=== PATIENT | female | born 1965 | race Caucasian/White ===

== ENCOUNTER → 2023-09-28 11:25 | Outpatient (BNVA) | payer MEDICARE, MEDICAID, SELFPAY | PROVIDERS: Family Provider Nurse Practitioner Family; PCP Nurse Practitioner Family; Visit Provider Specialist | DX: R41.89 Other symptoms and signs involving cognitive functions and awareness (principal); R26.9 Unspecified abnormalities of gait and mobility; F07.81 Postconcussional syndrome | CPT/HCPCS: 99205 ==

== ENCOUNTER → 2023-10-10 10:42 | Outpatient (BNVA) | payer MEDICARE, OTHER, MEDICAID, SELFPAY | PROVIDERS: Family Provider Nurse Practitioner Family; PCP Nurse Practitioner Family; Visit Provider Specialist | DX: R26.9 Unspecified abnormalities of gait and mobility (principal); F07.81 Postconcussional syndrome; R41.89 Other symptoms and signs involving cognitive functions and awareness | CPT/HCPCS: 95816 ==

== ENCOUNTER 2023-10-31 11:58 | Outpatient (CLI) | payer OTHER, SELFPAY ==
--- NOTE | 2023-10-31 13:00 | MR_ITS ---
WS: [id number] MRI BRAIN WITHOUT CONTRAST HISTORY: R41.89 - Other symptoms and signs involving cognitive fun... COMPARISON: 12/10/2018 TECHNIQUE: Diffusion imaging, multiplanar T1, T2 and FLAIR imaging obtained. No evidence for acute infarct or hemorrhage. [place]-white matter differentiation is normal. Mild volume loss and atrophy, similar to the prior examination without progression. Temporal lobes ar e symmetric. No hippocampal atrophy. Ventricles and extra-axial spaces are normal. No inferior displacement of cerebellar tonsils. The sella turcica and pituitary gland are unremarkabl e. Dural venous sinuses and lower [place] demonstrate no abnormality on this unenhanced studies. Paranasal sinuses: Clear. Mastoid air cells: Normal. Calvarium and scalp: Intact. IMPRESSION: 1. No acute infarct, hemorrhage or edema. 2. Mild volume loss and atrophy similar to the prior study with no progression. 3. No significant hippocampal atrophy.
== END 2023-10-31 11:59 | disposition home or self-care (01) ==
LOC: RAD 12:00
PROVIDERS: Family Provider Nurse Practitioner Family; PCP Nurse Practitioner Family; Visit Provider Specialist
DX: R41.89 Other symptoms and signs involving cognitive functions and awareness (principal); R26.9 Unspecified abnormalities of gait and mobility
CPT/HCPCS: 70551

== ENCOUNTER → 2023-12-05 09:22 | Outpatient (BNVA) | payer OTHER, SELFPAY | PROVIDERS: Family Provider Nurse Practitioner Family; PCP Nurse Practitioner Family; Visit Provider Specialist | DX: R26.9 Unspecified abnormalities of gait and mobility; G31.84 Mild cognitive impairment of uncertain or unknown etiology; F07.81 Postconcussional syndrome | CPT/HCPCS: 99214 ==

== ENCOUNTER → 2024-06-04 09:45 | Outpatient (BNVA) | payer OTHER, SELFPAY | PROVIDERS: Family Provider Nurse Practitioner Family; PCP Nurse Practitioner Family; Visit Provider Specialist | DX: R41.89 Other symptoms and signs involving cognitive functions and awareness (principal); I63.9 Cerebral infarction, unspecified; R26.9 Unspecified abnormalities of gait and mobility; F07.81 Postconcussional syndrome | CPT/HCPCS: 99215 ==